=== PATIENT | male | born 1980 | race American Indian/Alaskan Native ===

== ENCOUNTER 2017-02-24 00:28 | Emergency (ER) | payer SELFPAY ==
--- NOTE | 2017-02-24 03:57 | Emergency Department Report ---
- General Chief Complaint: Upper Respiratory Infection Stated Complaint: COUGH Source: patient Mode of arrival: Ambulatory Limitations: No Limitations - History of Present Illness Initial Comments: This is a 35-year-old male that presents with a nonproductive cough with intermittent headaches for the past month. Patient describes headache as a intermittent and describes as pounding/throbbing with a pain level of 6 out of 10. Patient denies nontender clap headache. Patient describes headache only when coughing that is aching in the frontal area. States is a gradual onset of headache. Denies blurred vision, chest pain, shortness of breath, dizziness, blurry vision, numbness or tingling, abdominal pain, nausea or vomiting. Patient stated has been in to the emergency room 2 times and the last time patient was seen at [facility] yesterday and was diagnosed with common cold/ bronchitis. Patient stated the only medication he has been prescribed this over -the-counter ibuprofen with nasal normal saline flush. Patient denies receiving any antibiotics or prednisone. Patient denies any allergies. Patient denies having chest xrays. Patient stated has a primary care doctor and is aware of his blood pressure and stated has chronic care doctor is having him do diet rather than medication. Patient denies any drug allergies or past medical history. MD Complaint: cough (nonproductive) -: Gradual, month(s) (1) Severity: mild Severity scale (0 -10): 8 Quality: aching Consistency: intermittent Improves With: nothing Associated Symptoms: cough. denies: fever, chills, myalgias, diaphoresis, headache, rhinorrhea, nasal congestion, sore throat, stiff neck, chest pain, shortness of breath, abdominal pain, nausea, vomiting, diarrhea, dysuria, rash, confusion, right sweats, weight loss, epistaxis, hoarseness, ear pain Treatments Prior to Arrival: none - Related Data Previous Rx's Medication Instructions Recorded Last Taken Type Azithromycin [Zithromax Z-AP] 250 mg PO DAILY #6 tablet 02/24/17 Unknown Rx predniSONE [Deltasone] 20 mg PO BID #10 tab 02/24/17 Unknown Rx Allergies Allergy/AdvReac Type Severity Reaction Status Date / Time No Known Allergies Allergy Verified 02/24/17 00:54 ED Review of Systems ROS: Stated complaint: COUGH Other details as noted in HPI Constitutional: denies: chills, fever Eyes: denies: eye pain, eye discharge, vision change ENT: denies: ear pain, throat pain Respiratory: denies: cough, shortness of breath, wheezing Cardiovascular: denies: chest pain, palpitations Endocrine: no symptoms reported Gastrointestinal: denies: abdominal pain, nausea, diarrhea Genitourinary: denies: urgency, dysuria Musculoskeletal: denies: back pain, joint swelling, arthralgia Skin: denies: rash, lesions Neurological: denies: headache, weakness, paresthesias Psychiatric: denies: anxiety, depression Hematological/Lymphatic: denies: easy bleeding, easy bruising ED Past Medical Hx - Past Medical History Previous Medical History?: No - Surgical History Past Surgical History?: Yes Additional Surgical History: inguinal hernia repair - Social History Smoking Status: Never Smoker Substance Use Type: None - Medications Home Medications: Home Medications Medication Instructions Recorded Confirmed Last Taken Type Azithromycin [Zithromax Z-AP] 250 mg PO DAILY #6 tablet 02/24/17 Unknown Rx predniSONE [Deltasone] 20 mg PO BID #10 tab 02/24/17 Unknown Rx ED Physical Exam - General Limitations: No Limitations General appearance: alert, in no apparent distress - Head Head exam: Present: atraumatic, normocephalic, normal inspection - Eye Eye exam: Present: normal appearance, PERRL, EOMI. Absent: scleral icterus, conjunctival injection, nystagmus, periorbital swelling, periorbital tenderness Pupils: Present: normal accommodation - ENT ENT exam: Present: normal exam, normal orophraynx, mucous membranes moist, TM's normal bilaterally, normal external ear exam - Expanded ENT Exam Expanded Mouth exam: Present: normal external inspection, tongue normal. Absent: drooling, trismus, muffled voice, tongue elevation, laceration Teeth exam: Present: normal inspection Throat exam: Positive: normal inspection. Negative: tonsillar erythema, tonsillomegaly, tonsillar exudate, R peritonsillar mass, L peritonsillar mass - Neck Neck exam: Present: normal inspection, full ROM. Absent: tenderness, meningismus, lymphadenopathy, thyromegaly - Respiratory Respiratory exam: Present: normal lung sounds bilaterally. Absent: respiratory distress, wheezes, rales, rhonchi, stridor, chest wall tenderness, accessory muscle use, decreased breath sounds, prolonged expiratory - Cardiovascular Cardiovascular Exam: Present: regular rate, normal rhythm, normal heart sounds. Absent: bradycardia, tachycardia, irregular rhythm, systolic murmur, diastolic murmur, rubs, gallop - GI/Abdominal GI/Abdominal exam: Present: soft, normal bowel sounds. Absent: distended, tenderness, guarding, rebound, rigid, diminished bowel sounds - Rectal Rectal exam: Present: deferred - Extremities Exam Extremities exam: Present: normal inspection, full ROM, normal capillary refill. Absent: tenderness, pedal edema, joint swelling, calf tenderness - Back Exam Back exam: Present: normal inspection, full ROM. Absent: tenderness, CVA tenderness (R), CVA tenderness (L), muscle spasm, paraspinal tenderness, vertebral tenderness, rash noted - Neurological Exam Neurological exam: Present: alert, oriented X3, CN II-XII intact, normal gait - Psychiatric Psychiatric exam: Present: normal affect, normal mood - Skin Skin exam: Present: warm, dry, intact, normal color. Absent: rash ED Course Vital Signs 02/24/17 00:48 Temperature 98.8 F Pulse Rate 103 H Respiratory 18 Rate Blood Pressure 143/102 O2 Sat by Pulse 96 Oximetry ED Medical Decision Making - Medical Decision Making Ed course: This is a 36-year-old male that presents with bronchitis versus common cold. 1- after my physical exam, pt received an chest xray in the ED. 2- Pt was insisted to receive antibiotics because of the intensity of cough going on for 1 month. I instructed the patient that he will be prescribed antibiotics but he should not take it if the symptoms is not relieved on the 4/ 5 after prednisone treatment. 3- patient was also instructed to follow-up with his primary care doctor in 3-5 days or if symptoms worsen in unbearable report back to emergency room as soon as possible. 4- at time time of discharge, the patient does not seem toxic or ill in appearance. No acute signs of distress noted. Patient agrees to discharge treatment plan of care. No further questions noted by the patient. 5- Due to patient having f/u with his b/p and is asymptomatic patient and recommendation from [facility] is not treatment in the ED. Critical care attestation.: If time is entered above; I have spent that time in minutes in the direct care of this critically ill patient, excluding procedure time. ED Disposition Clinical Impression: Bronchitis Disposition: DC-01 TO HOME OR SELFCARE Is pt being admited?: No Does the pt Need Aspirin: No Condition: Stable Instructions: Chronic Bronchitis (ED) Additional Instructions: Take Z-Ap as prescribed after the fourth/fifth day of taking prednisone and the symptoms are relieved. Follow-up with her primary care doctor in 3-5 days or if symptoms are unbearable and worse report back to emergency room as soon as possible Prescriptions: Azithromycin [Zithromax Z-AP] 250 mg PO DAILY #6 tablet predniSONE [Deltasone] 20 mg PO BID #10 tab Referrals: PRIMARY CAREMD [Primary Care Provider] - 3-5 Days [facility] [Outside] - 3-5 Days [facility] [Outside] - 3-5 Days CAREN KATZ JR, MD [Staff Physician] - 3-5 Days Forms: Work/School Release Form(ED)
--- NOTE | 2017-02-24 04:35 | XRay Report ---
FINAL REPORT PROCEDURE: XR CHEST ROUTINE 2V TECHNIQUE: PA and lateral chest radiographs were obtained. CPT 27117 HISTORY: cough COMPARISON: No prior studies are available for comparison. FINDINGS: Heart: Normal. Mediastinum/Vessels: Normal. Lungs/Pleural space: Normal. Bony thorax: No acute osseous abnormality. Other: IMPRESSION: Normal examination.
[2017-02-24 05:38] VITALS: BP 141/95
== END 2017-02-24 05:36 | disposition home or self-care (01) ==
LOC: ED 00:28
DX: J40 Bronchitis, not specified as acute or chronic (principal)
CPT/HCPCS: 71020

== ENCOUNTER 2018-01-31 03:42 | Emergency (ER) | payer OTHER ==
[2018-01-31 03:54] VITALS: BP 125/82
--- NOTE | 2018-01-31 04:30 | Emergency Department Report ---
ED Rash HPI - HPI Chief Complaint: Extremity Injury, Lower Stated Complaint: BILATERAL FOOT PAIN,SWELLING Time Seen by Provider: 01/31/18 04:11 Duration: 2 weeks Location: Lower Extremities (bilateral feet) Suspected Cause: Other (water) Rash Symptoms: Yes Itching, No Facial Swelling, No Tongue/Oral Swelling, No Breathing Difficulties, No Choking Sensation, No Wheezing/Dyspnea, No Peeling, No Blistering, No Fever, No Lightheaded, No Malaise, No Myalgias Severity: moderate Other History: This is a 37-year-old -[place] male Presents with severe athletes feet to both feet for 2 weeks. Patient reports noticing symptoms of athletes feet 2 months ago and has been using [id number] antifungal creams with no improvement of symptoms. 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 Reports increase burning, itching, pain over the past 2 weeks. When he got off work today he could barely drive home he had to supervisor [employer] due to sharp pains in left foot. When he took off work boot he noticed scan turned green and swelling between fourth and fifth toes on left foot. Reports swelling has decreased. He decided to come and for evaluation. Denies numbness or tingling, discharge, and deformity. ED Review of Systems ROS: Stated complaint: BILATERAL FOOT PAIN,SWELLING Other details as noted in HPI Constitutional: denies: chills, fever Respiratory: denies: cough, shortness of breath, wheezing Cardiovascular: denies: chest pain, palpitations Gastrointestinal: denies: abdominal pain, nausea, diarrhea Skin: lesions. denies: rash Neurological: denies: headache, weakness, paresthesias Psychiatric: denies: anxiety, depression ED Past Medical Hx - Past Medical History Previous Medical History?: No - Surgical History Past Surgical History?: Yes Additional Surgical History: inguinal hernia repair - Social History Smoking Status: Never Smoker Substance Use Type: None - Medications Home Medications: Home Medications Medication Instructions Recorded Confirmed Last Taken Type Azithromycin [Zithromax Z-AP] 250 mg PO DAILY #6 tablet 02/24/17 Unknown Rx predniSONE [Deltasone] 20 mg PO BID #10 tab 02/24/17 Unknown Rx Ciclopirox Olamine [Loprox] 90 gm TP BID #1 cream..g. 01/31/18 Unknown Rx Sulfamethoxazole/Trimethoprim 1 each PO BID 10 Days #20 tablet 01/31/18 Unknown Rx [Bactrim DS TAB] Rash Exam - Exam General: Vital signs noted. No distress. Alert and acting appropriately. HEENT: No Periorbital Edema, No Conjuctival Injection, No Chemosis, No Perioral Edema, No Tongue Edema, No Uvular Edema, No Compromised Airway, No Drooling Lungs: Yes Good Air Exchange (Normal Breath Sounds), No Wheezes, No Ronchi, No Stridor, No Cough, No Labored Respirations, No Retractions, No Use of Accessory Muscles, No Other Abnormal Lung Sounds Heart: Yes Regular, No Murmur Skin: Yes Weeping (weeping plaques, yellow discharge between 4th & 5th toes on left and right feet, tender), Yes Tenderness, Yes Erythema, Yes Other (plaques between 2nd & 3rd toes on left foot, ), No Urticarial Rash, No Maculopapular Rash, No Morbilliform rash, No Bulla(e), No Excoriations, No Edema, No Encrustations ED Course Vital Signs 01/31/18 03:48 Temperature 97.9 F Pulse Rate 90 Respiratory 18 Rate Blood Pressure 125/82 O2 Sat by Pulse 97 Oximetry ED Medical Decision Making - Medical Decision Making This is a -[place] male who presents questionable athletes foot bilaterally for 2 weeks. Patient examined by me. In no acute distress. Vitals are stable. Physical assessment susceptible of tenia pedis with secondary bacterial cellulitis. Start Bactrim DS and Loprox cream. Follow-up with PCP in 2-3 days. Discussed plan with patient and agreed to plan. Discharged home in stable condition. Critical care attestation.: If time is entered above; I have spent that time in minutes in the direct care of this critically ill patient, excluding procedure time. ED Disposition Clinical Impression: Cellulitis of both feet Tinea pedis Qualifiers: Laterality: bilateral Qualified Code(s): B35.3 - Tinea pedis Disposition: - TO HOME OR SELFCARE Is pt being admited?: No Does the pt Need Aspirin: No Condition: Stable Instructions: Tinea Pedis (ED), Cellulitis (ED) Additional Instructions: Avoid occlusive footwear. Change to dry socks 2-[address] between toes twice a day area. Change or alternate shoes. Apply loprox cream to affected area twice a day for 3-4 weeks. Follow-up with primary care provider in 3-5 days. Return to the emergency room in discharge increase, redness, pain, and fever. Prescriptions: Ciclopirox Olamine [Loprox] 90 gm TP BID #1 cream..g. Sulfamethoxazole/Trimethoprim [Bactrim DS TAB] 1 each PO BID 10 Days #20 tablet Forms: Work/School Release Form(ED), Accompanied Note Time of Disposition: 04:49 Print Language: ESTONIAN
== END 2018-01-31 05:00 | disposition home or self-care (01) ==
LOC: ED 03:42
DX: L03.116 Cellulitis of left lower limb (principal); L03.115 Cellulitis of right lower limb; B35.3 Tinea pedis
CPT/HCPCS: 99282

== ENCOUNTER 2020-05-13 01:17 | Emergency (ER) | payer SELFPAY ==
[2020-05-13 02:22] VITALS: BP 135/85
--- NOTE | 2020-05-13 04:02 | Emergency Department Report ---
ED Medical Clearance HPI - General Chief complaint: Medical Clearance Stated complaint: MED REFILL Time Seen by Provider: 05/13/20 03:55 Source: patient Mode of arrival: Ambulatory - History of Present Illness Initial comments: 40-year-old -German male presents to the emergency room requesting acyclovir for herpes outbreak that he has had for the last 2 weeks.. Patient denies any fever chills no nausea no vomiting no shortness of breath or chest pain. Home medications: Previous Rx's Medication Instructions Recorded Last Taken Type Azithromycin [Zithromax Z-AP] 250 mg PO DAILY #6 tablet 02/24/17 Unknown Rx predniSONE [Deltasone] 20 mg PO BID #10 tab 02/24/17 Unknown Rx Ciclopirox Olamine [Loprox] 90 gm TP BID #1 cream..g. 01/31/18 Unknown Rx Sulfamethoxazole/Trimethoprim 1 each PO BID 10 Days #20 tablet 01/31/18 Unknown Rx [Bactrim DS TAB] Acyclovir [Zovirax Tab] 800 mg PO Q12H 5 Days #10 tab 05/13/20 Unknown Rx Allergies/Adverse reactions: Allergies Allergy/AdvReac Type Severity Reaction Status Date / Time No Known Allergies Allergy Verified 02/24/17 00:54 ED Review of Systems ROS: Stated complaint: MED REFILL Other details as noted in HPI ED Past Medical Hx - Past Medical History Previous Medical History?: Yes Additional medical history: Herpes 2 - Surgical History Additional Surgical History: inguinal hernia repair - Social History Smoking Status: Never Smoker Substance Use Type: None - Medications Home Medications: Home Medications Medication Instructions Recorded Confirmed Last Taken Type Azithromycin [Zithromax Z-AP] 250 mg PO DAILY #6 tablet 02/24/17 Unknown Rx predniSONE [Deltasone] 20 mg PO BID #10 tab 02/24/17 Unknown Rx Ciclopirox Olamine [Loprox] 90 gm TP BID #1 cream..g. 01/31/18 Unknown Rx Sulfamethoxazole/Trimethoprim 1 each PO BID 10 Days #20 tablet 01/31/18 Unknown Rx [Bactrim DS TAB] Acyclovir [Zovirax Tab] 800 mg PO Q12H 5 Days #10 tab 05/13/20 Unknown Rx ED Physical Exam - General Limitations: No Limitations General appearance: alert, in no apparent distress - ENT ENT exam: Present: normal exam - Extremities Exam Extremities exam: Present: normal inspection, full ROM - Back Exam Back exam: Present: full ROM - Neurological Exam Neurological exam: Present: alert, oriented X3 - Psychiatric Psychiatric exam: Present: normal affect, agitated ED Course Vital Signs 05/13/20 02:12 Temperature 97.9 F Pulse Rate 91 H Respiratory 18 Rate Blood Pressure 135/85 O2 Sat by Pulse 95 Oximetry ED Disposition Clinical Impression: Genital herpes simplex type 2 Disposition: DC-01 TO HOME OR SELFCARE Is pt being admited?: No Does the pt Need Aspirin: No Condition: Stable Instructions: Genital Herpes Simplex (ED) Additional Instructions: Complete antiviral medications as prescribed. Please Follow-up with your primary care provider. Prescriptions: Acyclovir [Zovirax Tab] 800 mg PO Q12H 5 Days #10 tab Referrals: [facility] [place] [Provider Group] - 3-5 Days Forms: Work/School Release Form(ED)
== END 2020-05-13 04:10 | disposition home or self-care (01) ==
LOC: ED 01:17
DX: A60.00 Herpesviral infection of urogenital system, unspecified (principal); Z98.890 Other specified postprocedural states; Z79.899 Other long term (current) drug therapy; Z76.0 Encounter for issue of repeat prescription
CPT/HCPCS: 99282